=== PATIENT | male | born 1990 | race Caucasian/White ===

== ENCOUNTER 2021-04-29 15:19 | Emergency (ER) | payer BC, OTHER ==
[2021-04-29 16:27] LABS: Absolute Lymphocytes (CBC) 0.7 K/uL (0.7-4.9); Basophils % 0.4 % (0-1.3); Hematocrit 51.3 % (39.6-49.0); Lymphocytes % 12.1 % (15.3-44.8); MPV 9.2 fL (7.6-11.3); RBC Red Blood Cell Count 5.92 M/uL (4.33-5.43)
[2021-04-29 16:28] LABS: ALT/SGPT 27 U/L (12-78); AST/SGOT 17 U/L (15-37); Alkaline Phosphatase 90 U/L (45-117); BUN Blood Urea Nitrogen 21 mg/dL (7-18); Bicarbonate 25 mmol/L (21-32); Bilirubin Direct 0.1 mg/dL (0-0.2); Bilirubin Total 0.7 mg/dL (0.2-1.0); Glucose Level 130 mg/dL (74-106); Lipase 37 U/L (73-393); Potassium 3.6 mmol/L (3.5-5.1); Protein, Total 8.4 g/dL (6.4-8.2); Sodium Level 139 mmol/L (136-145)
[2021-04-29] MEDS ORDERED: ONDANSETRON 4 MG/2 ML VIAL ONE (17:05)
[2021-04-29] MEDS ORDERED: FENTANYL CITR 100 MCG/2 ML ONE ×2 (17:05→19:36)
--- NOTE | 2021-04-29 18:24 | RAD REPORT ---
EXAM DESCRIPTION: CT - Abdomen Pelvis W Contrast - 04/29/2021 6:01 pm CLINICAL HISTORY: Abdominal pain COMPARISON: 2012 TECHNIQUE: Computed axial tomography of the abdomen pelvis was obtained. 100 cc Isovue-300 was admin istered intravenously. Oral contrast was not requested which limits evaluation of bowel. All CT scans are performed using dose optimization technique as appropriate and may include automated exposure control or mA/KV adjustment according to patient size. FINDINGS: The wall of a portion of ileum within the right pelvis is moderately thickened. Suture lies proximal to this. Small bowel is mildly dilated proximal and distal to this portion. Short segment narrowing involves the proximal rectum. Almost the entire colon and small bowel is flui d-filled. Mild dilatation of small bowel. The liver, pancreas, adrenals kidneys appear unremarkable Spleen measures 19 centimeters. IMPRESSION: Moderate thickening of the wall of the ileum likely inflammation. Short segment narrowing of the proximal rectum probably spasm. A mass has a similar appearance but is less likely to and can be monitored on subsequent examination. Mildly dilated fluid-filled small bowel. These findings probably indicate an enteritis or ileus. An o bstruction is considered less likely. If the patient's symptoms do not improve then follow up imaging would recommended for re-evaluation.
[2021-04-29] MEDS ORDERED: DICYCLOMINE HCL 20 MG/2 ML AMP IM ONE (19:34)
--- NOTE | 2021-04-29 19:34 | EDPHYS ---
Physician Documentation [facility] Name: Yadiel Welch Age: 30 yrs Sex: Male : 1990 Arrival Date: 04/29/2021 Time: 15:22 Bed 12 Private MD: ED Physician Nathan Tadeo HPI: 04/29 18:58 This 30 yrs old Male presents to ER via Ambulatory with complaints of Abdominal Pain, jr8 Nausea. 18:58 Is a 30-year-old male patient that presented to the emergency room with 24 hours of jr8 nausea and vomiting with abdominal pain. Patient has a history of Crohn's disease with resection and anastomosis in the past. Has been in remission from Crohn's for the past 7 years. Patient stated for the last 24 hours had had marked decrease and bowel movement. Denies any diarrhea or mucoid or bloody stools.. Historical: - Allergies: 15:58 No Known Allergies; aa5 - PMHx: 15:58 Chron's; aa5 - PSHx: 15:58 Ileum resections; Appendectomy; aa5 - Immunization history:: Client reports receiving the 2nd dose of the Covid vaccine. - Social history:: Smoking status: Patient reports the use of cigarette tobacco products, smokes one pack cigarettes per day. ROS: 18:58 Eyes: Negative for injury, pain, redness, and discharge, ENT: Negative for injury, jr8 pain, and discharge, Neck: Negative for injury, pain, and swelling, Cardiovascular: Negative for chest pain, palpitations, and edema, Respiratory: Negative for shortness of breath, cough, wheezing, and pleuritic chest pain, Back: Negative for injury and pain, MS/Extremity: Negative for injury and deformity, Skin: Negative for injury, rash, and discoloration, Neuro: Negative for headache, weakness, numbness, tingling, and seizure. 18:58 Abdomen/GI: Positive for abdominal pain, nausea and vomiting, abdominal distension, Negative for diarrhea, hematemesis, black/tarry stool, rectal pain, rectal bleeding, bowel incontinence, flatulence. Exam: 18:58 Constitutional: This is a well developed, well nourished patient who is awake, alert, jr8 and in no acute distress. Cardiovascular: Regular rate and rhythm with a normal S1 and S2. No gallops, murmurs, or rubs. Normal PMI, no JVD. No pulse deficits. Respiratory: Lungs have equal breath sounds bilaterally, clear to auscultation and percussion. No rales, rhonchi or wheezes noted. No increased work of breathing, no retractions or nasal flaring. Back: No spinal tenderness. No costovertebral tenderness. Full range of motion. Skin: Warm, dry with normal turgor. Normal color with no rashes, no lesions, and no evidence of cellulitis. MS/ Extremity: Pulses equal, no cyanosis. Neurovascular intact. Full, normal range of motion. Neuro: Awake and alert, GCS 15, oriented to person, place, time, and situation. Cranial nerves II-XII grossly intact. Motor strength 5/5 in all extremities. Sensory grossly intact. 18:58 Abdomen/GI: Inspection: distension, that is mild, Bowel sounds: active, all quadrants, Palpation: soft, in all quadrants, mild abdominal tenderness, in the abdomen diffusely, mass, is not appreciated, rebound tenderness, is not appreciated, voluntary guarding, is not appreciated, involuntary guarding, is not appreciated, no appreciated organomegaly, Indicators: McBurney's point is not tender, Montgomery's sign is negative, Rovsing's sign is negative, Liver: tenderness, is not appreciated. Vital Signs: 15:57 BP 124 / 80; Pulse 116; Resp 18 S; Temp 98.2(O); Pulse Ox 97% on R/A; Weight 68.04 kg aa5 (R); Height 5 ft. 9 in. (175.26 cm) (R); 17:12 BP 129 / 90; Pulse 105; Resp 18; Pulse Ox 98% on R/A; ld1 18:16 BP 126 / 88; Pulse 102; Resp 18; Pulse Ox 99% on R/A; ld1 15:57 Body Mass Index 22.15 (68.04 kg, 175.26 cm) aa5 MDM: 16:41 Patient medically screened. jr8 18:58 Data reviewed: vital signs, nurses notes, lab test result(s), radiologic studies, CT jr8 scan. Data interpreted: Pulse oximetry: on room air is 99 %. Interpretation: normal. Counseling: I had a detailed discussion with the patient and/or guardian regarding: the historical points, exam findings, and any diagnostic results supporting the discharge/admit diagnosis, lab results, radiology results. ED course: Discussed with patient that his labs are unremarkable but he does have fluid-filled bowel loops consistent with enteritis on his CT. Less likely to be obstruction at this time but cannot fully rule that out. When I reexamined patient patient overall is feeling much better. Has had no nausea or vomiting episodes since has been medicated. Is able to tolerate p.o. fluids at this time. Hemodynamically stable and afebrile. My initial recommendation was to observe closely given his history and what we saw on the CT. I had called his primary care for admission but wants him transferred which patient does not want to have happened at this time. I gave him the option to go home or to be admitted under someone else if he wants to wave his rights to his primary care physician. Patient wants to try going home at this time and would closely follow-up and/or come back immediately if something were to worsen.. 04/29 15:59 Order name: Basic Metabolic Panel; Complete Time: 16:41 aa5 04/29 15:59 Order name: CBC with Diff; Complete Time: 16:41 aa5 04/29 15:59 Order name: Hepatic Function; Complete Time: 16:41 aa5 04/29 15:59 Order name: Lipase; Complete Time: 16:41 aa5 04/29 17:04 Order name: CT Abd/Pelvis - IV Contrast Only; Complete Time: 18:46 jr8 04/29 15:59 Order name: IV Saline Lock; Complete Time: 16:55 aa5 04/29 15:59 Order name: Labs collected and sent; Complete Time: 16:55 aa5 Administered Medications: 17:11 Drug: fentaNYL (PF) 50 mcg Route: IVP; Site: right antecubital; ld1 17:11 Follow up: Response: No adverse reaction ld1 17:11 Follow up: Response: No adverse reaction ld1 17:11 Drug: Zofran (Ondansetron) 4 mg Route: IVP; Site: right antecubital; ld1 17:11 Follow up: Response: No adverse reaction ld1 19:44 Drug: Promethazine 25 mg Route: IVP; Site: right antecubital; jh5 19:44 Drug: fentaNYL (PF) 50 mcg Route: IVP; Site: right antecubital; jh5 19:44 Drug: Bentyl (dicyclomine) 20 mg Route: IM; Site: Ventrogluteal RIGHT; [facility] Disposition: 04/30 12:38 Co-signature as Attending Physician, Nathan Tadeo MD I agree with the assessment and kdr plan of care. Disposition Summary: 04/29/21 19:33 Discharge Ordered Location: Home jr8 Problem: new jr8 Symptoms: have improved jr8 Condition: Stable jr8 Diagnosis - Other viral enteritis jr8 - Crohn's disease, unspecified, without complications jr8 Followup: jr8 - With: Sherri Suazo MD - When: 2 - 3 days - Reason: Recheck today's complaints, Continuance of care, Re-evaluation by your physician Discharge Instructions: - Discharge Summary Sheet jr8 - Crohn's Disease jr8 - Viral Gastroenteritis, Adult jr8 Forms: - Medication Reconciliation Form jr8 - Thank You Letter jr8 - Antibiotic Education jr8 - Prescription Opioid Use jr8 - Work release form bb Prescriptions: - Flagyl 500 mg Oral Tablet - take 1 tablet by ORAL route every 12 hours for 7 days; 14 tablet; Refills: 0, jr8 Product Selection Permitted - Cipro 500 mg Oral Tablet - take 1 tablet by ORAL route every 12 hours for 7 days; 14 tablet; Refills: 0, jr8 Product Selection Permitted - promethazine 25 mg Oral Tablet - take 1 tablet by ORAL route every 6 hours As needed; 20 tablet; Refills: 0, jr8 Product Selection Permitted - dicyclomine 20 mg Oral Tablet - take 1 tablet by ORAL route 3 times per day As needed; 21 tablet; Refills: 0, jr8 Product Selection Permitted Signatures: Dispatcher [employer] Nathan Conley MD MD kdr Calderon, Audri RN RN aa5 Beltran Justice PA PA jr8 Deanna Ramirez, RN RN ld1 Danuta Maldonado RN RN jh5
--- NOTE | 2021-04-29 19:34 | ER ---
Nurse's Notes [facility] Name: Yadiel Welch Age: 30 yrs Sex: Male : 1990 Arrival Date: 04/29/2021 Time: 15: Bed 12 Private MD: Diagnosis: Other viral enteritis;Crohn's disease, unspecified, without complications Presentation: 04/29 15:57 Chief complaint: Patient states: abd pain with nausea/vomiting that began yesterday. aa5 Denies diarrhea. Coronavirus screen: vomiting. Ebola Screen: No symptoms or risks identified at this time. Initial Sepsis Screen: Does the patient meet any 2 criteria? HR > 90 bpm. Does the patient have a suspected source of infection? No. Patient's initial sepsis screen is negative. Risk Assessment: Do you want to hurt yourself or someone else? Patient reports no desire to harm self or others. Onset of symptoms was April 2021. 15:57 Acuity: RAGINI 3 aa5 15:57 Method Of Arrival: Ambulatory aa5 Historical: - Allergies: 15:58 No Known Allergies; aa5 - PMHx: 15:58 Chron's; aa5 - PSHx: 15:58 Ileum resections; Appendectomy; aa5 - Immunization history:: Client reports receiving the 2nd dose of the Covid vaccine. - Social history:: Smoking status: Patient reports the use of cigarette tobacco products, smokes one pack cigarettes per day. Screenin:59 Abuse screen: Denies threats or abuse. Denies injuries from another. Nutritional ld1 screening: No deficits noted. Tuberculosis screening: No symptoms or risk factors identified. Fall Risk None identified. Assessment: 16:59 General: Appears in no apparent distress. comfortable, Behavior is calm, cooperative, ld1 appropriate for age. Pain: Complains of pain in abdomen Pain does not radiate. Pain currently is 8 out of 10 on a pain scale. Quality of pain is described as throbbing, Pain began suddenly, Is continuous. Neuro: Level of Consciousness is awake, alert, obeys commands, Oriented to person, place, time, situation. Cardiovascular: Capillary refill < 3 seconds Patient's skin is warm and dry. Respiratory: Airway is patent Respiratory effort is even, unlabored, Respiratory pattern is regular, symmetrical. GI: Abdomen is round non-distended, Bowel sounds present X 4 quads. Abd is soft Abdomen is tender to palpation X 4 quads. : No signs and/or symptoms were reported regarding the genitourinary system. EENT: No signs and/or symptoms were reported regarding the EENT system. Derm: No signs and/or symptoms reported regarding the dermatologic system. Musculoskeletal: No signs and/or symptoms reported regarding the musculoskeletal system. 18:16 Reassessment: Patient appears in no apparent distress at this time. Patient and/or ld1 family updated on plan of care and expected duration. Pain level reassessed. Patient is alert, oriented x 3, equal unlabored respirations, skin warm/dry/pink. Vital Signs: 15:57 BP 124 / 80; Pulse 116; Resp 18 S; Temp 98.2(O); Pulse Ox 97% on R/A; Weight 68.04 kg aa5 (R); Height 5 ft. 9 in. (175.26 cm) (R); 17:12 BP 129 / 90; Pulse 105; Resp 18; Pulse Ox 98% on R/A; ld1 18:16 BP 126 / 88; Pulse 102; Resp 18; Pulse Ox 99% on R/A; ld1 15:57 Body Mass Index 22.15 (68.04 kg, 175.26 cm) aa5 ED Course: 15:22 Patient arrived in ED. as 15:57 Arm band placed on. aa5 15:58 Triage completed. aa5 16:04 Initial lab(s) drawn, by fl, sent to lab. Inserted saline lock: 18 gauge in right aa5 antecubital area, using aseptic technique. Blood collected. 16:41 Beltran Justice [facility]. jr8 16:41 Nathan Tadeo MD is Attending Physician. jr8 16:58 Deanna Ramirez, XENIA is Primary Nurse. ld1 16:59 Patient has correct armband on for positive identification. Bed in low position. Call ld1 light in reach. Side rails up X2. sheep sticker on. Pulse ox on. NIBP on. Door closed. Noise minimized. Warm blanket given. 16:59 No provider procedures requiring assistance completed. ld1 18:01 CT Abd/Pelvis - IV Contrast Only In Process Unspecified. EDMS 19:33 Sherri Suazo MD is Referral Physician. jr8 Administered Medications: 17:11 Drug: fentaNYL (PF) 50 mcg Route: IVP; Site: right antecubital; ld1 17:11 Follow up: Response: No adverse reaction ld1 17:11 Follow up: Response: No adverse reaction ld1 17:11 Drug: Zofran (Ondansetron) 4 mg Route: IVP; Site: right antecubital; ld1 17:11 Follow up: Response: No adverse reaction ld1 19:44 Drug: Promethazine 25 mg Route: IVP; Site: right antecubital; jh5 19:44 Drug: fentaNYL (PF) 50 mcg Route: IVP; Site: right antecubital; jh5 19:44 Drug: Bentyl (dicyclomine) 20 mg Route: IM; Site: Ventrogluteal RIGHT; 5 Outcome: 19:33 Discharge ordered by MD. [email or web address] 19:54 Patient left the ED. jh5 Signatures: Dispatcher [employer] EDMS Dimple Uribe Audri, RN RN aa5 Beltran Justice PA PA jr8 Deanna Ramirez RN RN ld1 Danuta Maldonado RN RN jh5
[2021-04-29] MEDS ORDERED: PROMETHAZINE 25 MG TABLET ONE (19:36)
[2021-04-29 20:02] VITALS: TEMP 98.2
[2021-04-29 20:05] VITALS: BP 126/88; O2SAT 99
== END 2021-04-29 19:54 | disposition home or self-care (01) ==
LOC: ER 15:19
DX: A08.39 Other viral enteritis (principal); K50.90 Crohn's disease, unspecified, without complications; F17.210 Nicotine dependence, cigarettes, uncomplicated
CPT/HCPCS: 85025; 80048; 36415; 80076; 83690; 74177; 96375; 96372; 96374; 99284; Q9967; J0500; J3010 ×2; J2405; Q0169

== ENCOUNTER 2023-01-28 18:36 | Inpatient (IN) | payer BC ==
--- NOTE | 2023-01-28 20:02 | RAD REPORT ---
EXAM DESCRIPTION: US - Scrotum Testicles - 01/28/2023 7:24 pm CLINICAL HISTORY: PAIN COMPARISON: PELVIS dated 07/29/2007 FINDINGS: The right testicle 4.5 x 3.8 x 2.5 cm. No intratesticular masses or evidence of testicular torsion. The left testicle 4.4 x 3.1 x 2.3 cm. No intratesticular masses or evidence of testicular torsion. Both epididymides are normal in size and appearance. No pathologic fluid collections. Moderate scrotal wall edema and thickening. IMPRESSION: No testicular mass or evidence of testicular torsion. Moderate scrotal wall thickening and edema.
[2023-01-28] MEDS ORDERED: METHYLPREDNISOLONE 40 MG INJ ONE (20:37)
[2023-01-28] MEDS ORDERED: Ciprofloxacin 200mg IV 200 MG/100 ML IV.SOLN. IV ONE (20:38)
[2023-01-28] MEDS ORDERED: FAMOTIDINE 20 MG/2 ML VIAL IV ONE (20:38)
[2023-01-28 21:25] LABS: Absolute Lymphocytes (CBC) 1.8 K/uL (0.7-4.9); Hematocrit 41.6 % (39.6-49.0); Lymphocytes % 14.9 % (15.3-44.8); MCV 87.5 fL (80-100); MPV 8.5 fL (7.6-11.3); Platelets 190 thou/uL (152-406); RBC Red Blood Cell Count 4.75 M/uL (4.33-5.43)
[2023-01-28 21:28] LABS: Specific Gravity 1.027 (1.005-1.030); Urine Bacteria None Seen /HPF (<20); Urine Bilirubin NEGATIVE (Negative); Urine Blood Negative (Negative); Urine Clarity Clear (Clear); Urine Color Light-Yellow (Yellow); Urine Glucose NEGATIVE (Negative); Urine Mucus Slight /HPF (None Seen); Urine Protein TRACE (Negative); Urine RBC <5 /HPF (None Seen); Urine Urobilinogen Normal (Normal); Urine pH 5.5 (5.0-7.0)
[2023-01-28 21:39] LABS: Potassium 3.7 mEq/L (3.5-5.1)
--- NOTE | 2023-01-28 22:15 | RAD REPORT ---
EXAM DESCRIPTION: CTAbdomen Pelvis W Contrast - 01/28/2023 10:03 pm CLINICAL HISTORY: Abdominal pain. ABD PAIN COMPARISON: Abdomen Pelvis W Contrast dated 04/29/2021; CT ABD PELVIS W CONTRAST dated 01/28/2013; CT ABD PELVIS W CONTRAST dated 01/02/2008 TECHNIQUE: Biphasic CT imaging of the abdomen and pelvis was performed with 100 ml non-ionic IV cont rast. All CT scans are performed using dose optimization technique as appropriate and may include automated exposure control or mA/KV adjustment according to patient size. FINDINGS: The lung bases are clear. The liver, spleen, pancreas, adrenal glands and kidneys are within normal limits. No bowel obstruction, free air, free fluid or abscess. Moderate stool is present throughout the colon . Postsurgical changes are present in the right lower quadrant. Mild thickening is seen involving 6-7 cm segment of the ileum in the right lower quadrant. No evidence of significant lymphadenopathy. No suspicious bony findings. Mild scrotal fluid and wall thickening. IMPRESSION: Mild scrotal fluid and wall thickening is present. Wall thickening of segment of the ileum is present in the inferior right pelvis likely representing i nflammation.
--- NOTE | 2023-01-28 22:33 | EDPHYS ---
Physician Documentation [facility] Name: Yadiel Welch Age: 32 yrs Sex: Male : 1990 Arrival Date: 01/28/2023 Time: 18:36 Bed 20 Private MD: ED Physician Chadd Zhang HPI: 01/28 22:53 This 32 yrs old Male presents to ER via Ambulatory with complaints of Testicular kb Problem. 22:53 The patient presents with scrotal pain, of both sides, with swelling, with erythema. kb Onset: The symptoms/episode began/occurred this morning. Modifying factors: The symptoms are alleviated by nothing, the symptoms are aggravated by pressure. Associated signs and symptoms: The patient has no apparent associated signs or symptoms. Severity of symptoms: At their worst the symptoms were moderate, in the emergency department the symptoms are unchanged. The patient has not experienced similar symptoms in the past. The patient has not recently seen a physician. Historical: - Allergies: 18:54 No Known Allergies; nj1 - PMHx: 18:54 chron's; nj1 - PSHx: 18:54 Appendectomy; Ileum resections; nj1 - Immunization history:: Client reports receiving the 2nd dose of the Covid vaccine. - Social history:: Smoking status: Patient reports the use of cigarette tobacco products, smokes one-half pack cigarettes per day. ROS: 22:52 Constitutional: Negative for fever, chills, and weight loss. kb 22:52 : Positive for testicular pain of the scrotum. 22:52 All other systems are negative. Exam: 22:52 Constitutional: This is a well developed, well nourished patient who is awake, alert, kb and in no acute distress. Head/Face: Normocephalic, atraumatic. ENT: Moist Mucous membranes Cardiovascular: Regular rate and rhythm with a normal S1 and S2. No gallops, murmurs, or rubs. No pulse deficits. Respiratory: Respirations even and unlabored. No increased work of breathing. Talking in full sentences Abdomen/GI: Soft, non-tender. No distention MS/ Extremity: Pulses equal, no cyanosis. Neurovascular intact. Full, normal range of motion. Neuro: Awake and alert, GCS 15, oriented to person, place, time, and situation. Moves all extremities. Normal gait. 22:52 : Male external genitalia: erythema, of the scrotum is seen, that is moderate, swelling: of the scrotum is noted, scrotal, that is moderate. 22:52 Skin: cellulitis, that is moderate, on the scrotum. Vital Signs: 18:52 BP 126 / 87; Pulse 97; Resp 18; Temp 99.1(TE); Pulse Ox 99% ; Weight 73.48 kg; Height 5 nj1 ft. 9 in. ; Pain 5/10; 19:44 BP 120 / 83; Pulse 86; Resp 18; Pulse Ox 97% ; cm10 18:52 Body Mass Index 23.92 (73.48 kg, 175.26 cm) nj1 18:52 Pain Scale: Adult nj1 MDM: 18:40 Patient medically screened. kb 22:37 Differential diagnosis: nonspecific abdominal pain, cellulitis, testicular torsion. kb Data reviewed: vital signs, nurses notes. Consideration of Admission/Observation Patient was admitted/placed on observation. Escalation of care including admission/observation considered. Management of patient was discussed with the following: Hospitalist: JANAE Wells accepts pt for admission. Counseling: I had a detailed discussion with the patient and/or guardian regarding the historical points, exam findings, and any diagnostic results supporting the discharge/admit diagnosis, lab results, radiology results, the need for further work-up and treatment in the hospital. 01/28 20:07 Order name: CBC with Diff; Complete Time: 21:31 kb 01/28 20:07 Order name: Basic Metabolic Panel; Complete Time: 21:42 kb 01/28 20:07 Order name: Urinalysis w/ reflexes; Complete Time: 21:31 kb 01/28 20:07 Order name: Lactate w/ 2H reflex if indic.; Complete Time: 21:42 kb 01/28 20:07 Order name: Blood Culture Adult (2) kb 01/28 23:32 Order name: Basic Metabolic Panel EDMS 01/28 23:32 Order name: Basic Metabolic Panel; Complete Time: 12:58 EDMS 01/28 23:32 Order name: Basic Metabolic Panel EDMS 01/28 23:32 Order name: Basic Metabolic Panel EDMS 01/28 23:32 Order name: CBC with Automated Diff EDMS 01/28 23:32 Order name: CBC with Automated Diff; Complete Time: 12:58 EDMS 01/28 23:32 Order name: CBC with Automated Diff EDMS 01/28 23:32 Order name: CBC with Automated Diff EDMS 01/28 23:32 Order name: Magnesium EDMS 01/28 23:32 Order name: Magnesium; Complete Time: 12:58 EDMS 01/28 23:32 Order name: Magnesium EDMS 01/28 23:32 Order name: Magnesium EDMS 01/28 18:54 Order name: US Scrotum Testicles; Complete Time: 20:04 kb 01/28 20:07 Order name: CT Abd/Pelvis - IV Contrast Only; Complete Time: 22:16 kb 01/28 23:26 Order name: CONS Physician Consult EDMS 01/28 23:32 Order name: Regular EDMS 01/28 20:07 Order name: IV Start; Complete Time: 21:02 kb Administered Medications: 23:12 Drug: Cefepime IVPB 2 grams Route: IVPB; Rate: 200 ml/hr; Infused Over: 30 mins; Site: cm10 right antecubital; 23:12 Drug: NS 0.9% IV 1000 ml Route: IV; Rate: 1000 ml; Site: right antecubital; cm10 01/29 00:09 Drug: vancoMYCIN IVPB 1 grams Route: IVPB; Infused Over: 2 hrs; Site: right hand; ha1 02:00 Follow up: Response: No adverse reaction; IV Status: Completed infusion; IV Intake: ha1 250ml Disposition: 01/28 22:31 Co-signature as Attending Physician, Chadd Zhang MD I agree with the assessment and rn plan of care. I reviewed the patient's care provided by Advanced Practice Provider \T\ agree w/ the diagnosis \T\ care plan. I personally saw the pt \T\ performed a substantive portion of the visit, incldng all aspects of the (History/Exam/Medical Decision Making). PA/RIDES ATTENDANT's history reviewed, patient interviewed, and examined. HPI: 32 year old with swelling and pain to scrotum, no trauma, on humira. My personal exam of patient reveals: + swelling and edema to scrotal wall, no tenderness/erythema of perineum or perianal tissue. No fluctuance or abscess. 01/30 09:57 Co-signature as Attending Physician, Chadd Zhang MD. rn Disposition Summary: 01/28/23 22:32 Hospitalization Ordered Hospitalization Status: Inpatient Admission kb Provider: Kendell Kat Condition: Stable kb Problem: new kb Symptoms: are unchanged kb Bed/Room Type: Standard kb Location: Telemetry/MedSurg (observation)(01/29/23 14:03) bc6 Room Assignment: 205(01/29/23 14:03) 6 Diagnosis - Cellulitis of groin - scrotum kb Forms: - Medication Reconciliation Form kb - SBAR form kb - Leadership Thank You Letter kb Signatures: Dispatcher [employer] EDMS Hansa Pabon, AVIONICS ELECTRICAL ENGINEER-C AVIONICS ELECTRICAL ENGINEER-Ckb Gopi Frausto MD MD cha Nieto, Roman, MD MD rn Basinger, Emily RN RN eb1 Esther Nj RN RN 1 Uzam Kelly 6 Christiana Durán RN RN nj1 Sunita Uribe RN RN cm10 Corrections: (The following items were deleted from the chart) 01/28 23:14 22:32 Telemetry/MedSurg (Inpatient) kb eb1 23:14 22:32 kb eb1 01/29 14:03 01/28 23:14 [facility] ER HOLD eb1 bc6 01/29 14:03 01/28 23:14 ERHOLD- eb1 6
--- NOTE | 2023-01-28 22:33 | ER ---
Nurse's Notes [facility] Name: Yadiel Welch Age: 32 yrs Sex: Male : 1990 Arrival Date: 01/28/2023 Time: 18:36 Bed 20 Private MD: Diagnosis: Cellulitis of groin-scrotum Presentation: 01/28 18:52 Chief complaint: Patient states: Testicular pain along with swelling/redness since [facility] about 1 hr ago. Denies dysuria. Coronavirus screen: Vaccine status: Patient reports receiving the 2nd dose of the covid vaccine. Ebola Screen: Patient denies travel to an Ebola-affected area in the 21 days before illness onset. Initial Sepsis Screen: Does the patient meet any 2 criteria? No. Patient's initial sepsis screen is negative. Does the patient have a suspected source of infection? No. Patient's initial sepsis screen is negative. Risk Assessment: Do you want to hurt yourself or someone else? Patient reports no desire to harm self or others. Onset of symptoms was January 28, 2023 at 18:00. 18:52 Method Of Arrival: Ambulatory [facility] 18:52 Acuity: RAGINI 2 [facility] Triage Assessment: 19:44 General: Appears in no apparent distress. comfortable, Behavior is calm, cooperative. cm10 Pain: Complains of pain in groin. Neuro: No deficits noted. Level of Consciousness is awake, alert, obeys commands, Oriented to person, place, time, situation. Respiratory: No deficits noted. Airway is patent Respiratory effort is even, unlabored, Respiratory pattern is regular, symmetrical. : Reports Scrotal pain: sudden onset. Historical: - Allergies: 18:54 No Known Allergies; nj1 - PMHx: 18:54 chron's; nj1 - PSHx: 18:54 Appendectomy; Ileum resections; nj1 - Immunization history:: Client reports receiving the 2nd dose of the Covid vaccine. - Social history:: Smoking status: Patient reports the use of cigarette tobacco products, smokes one-half pack cigarettes per day. Screenin:45 [facility] ED Fall Risk Assessment (Adult) History of falling in the last 3 months, cm10 including since admission No falls in past 3 months (0 pts) Confusion or Disorientation No (0 pts) Intoxicated or Sedated No (0 pts) Impaired Gait No (0 pts) Mobility Assist Device Used No (0 pt) Altered Elimination No (0 pt) Score/Fall Risk Level 0 - 2 = Low Risk Oriented to surroundings, Maintained a safe environment, Hourly rounding (assess needs \T\ fall precautionary measures) done. Abuse screen: Denies threats or abuse. Denies injuries from another. Nutritional screening: No deficits noted. Tuberculosis screening: No symptoms or risk factors identified. Assessment: 20:30 Reassessment: Patient appears in no apparent distress at this time. Patient and/or cm10 family updated on plan of care and expected duration. Pain level reassessed. Patient is alert, oriented x 3, equal unlabored respirations, skin warm/dry/pink. 21:30 Reassessment: Patient appears in no apparent distress at this time. Patient and/or cm10 family updated on plan of care and expected duration. Pain level reassessed. Patient is alert, oriented x 3, equal unlabored respirations, skin warm/dry/pink. 22:30 Reassessment: Patient appears in no apparent distress at this time. Patient and/or cm10 family updated on plan of care and expected duration. Pain level reassessed. Patient is alert, oriented x 3, equal unlabored respirations, skin warm/dry/pink. 23:25 Reassessment: Patient appears in no apparent distress at this time. Patient and/or cm10 family updated on plan of care and expected duration. Pain level reassessed. Patient is alert, oriented x 3, equal unlabored respirations, skin warm/dry/pink. 01/29 07:00 Reassessment: SEE [employer] DOCUMENTATION. REPORT RECEIVED FROM XENIA RIVERA. db Vital Signs: 01/28 18:52 BP 126 / 87; Pulse 97; Resp 18; Temp 99.1(TE); Pulse Ox 99% ; Weight 73.48 kg; Height 5 nj1 ft. 9 in. ; Pain 5/10; 19:44 BP 120 / 83; Pulse 86; Resp 18; Pulse Ox 97% ; cm10 18:52 Body Mass Index 23.92 (73.48 kg, 175.26 cm) [facility] 18:52 Pain Scale: Adult [facility] ED Course: 18:39 Patient arrived in ED. im 18:40 Hansa Pabon FNP-C is PHCP. kb 18:40 Gopi Frausto MD is Attending Physician. kb 18:54 Triage completed. nj1 18:54 Arm band placed on left wrist. nj1 19:26 US Scrotum Testicles In Process Unspecified. EDMS 19:44 Sunita Uribe, XENIA is Primary Nurse. cm10 19:45 Patient has correct armband on for positive identification. Placed in gown. Bed in low cm10 position. Call light in reach. Provided Education on: N/A. 19:45 No provider procedures requiring assistance completed. cm10 21:54 Inserted saline lock: 20 gauge in right antecubital area, using aseptic technique. as6 22:05 CT Abd/Pelvis - IV Contrast Only In Process Unspecified. EDMS 22:20 Attending Physician role handed off by Gopi Frausto MD rn 22:20 Chadd Zhang MD is Attending Physician. rn 22:32 Kendell Kat MD is Hospitalizing Provider. kb 01/29 00:10 Report received from XENIA Dorsey. ha1 00:45 Patient admitted, IV remains in place. ha1 Administered Medications: 01/28 23:12 Drug: Cefepime IVPB 2 grams Route: IVPB; Rate: 200 ml/hr; Infused Over: 30 mins; Site: cm10 right antecubital; 23:12 Drug: NS 0.9% IV 1000 ml Route: IV; Rate: 1000 ml; Site: right antecubital; cm10 01/29 00:09 Drug: vancoMYCIN IVPB 1 grams Route: IVPB; Infused Over: 2 hrs; Site: right hand; ha1 02:00 Follow up: Response: No adverse reaction; IV Status: Completed infusion; IV Intake: ha1 250ml Medication: 01/28 19:45 VIS not applicable for this client. cm10 Intake: 01/29 02:00 IV: 250ml; Total: 250ml. ha1 Outcome: 01/28 22:32 Decision to Hospitalize by Provider. kb 01/29 00:45 Condition: stable ha1 00:45 Admitted to ER Hold. Please see [facility] for further documentation. ha1 00:45 Discharge instructions given to patient, family, Instructed on the need for admit, Demonstrated understanding of instructions, follow-up care. 14:18 Admitted to Med/surg accompanied by tech, via wheelchair, room 205, Report called to wilian Abrams RN 14:50 Patient left the ED. me1 Signatures: Dispatcher [employer] Hansa Chapin, [employer] Chadd Zhang MD MD rn Slawson, Ashby, RN RN as6 Esther Nj, RN RN ha1 Deya Mckee, RN RN db Christiana Durán RN RN nj1 Clarita Whipple Clarissa, RN RN cm10 Gina Barrera, RN RN me1
[2023-01-28] MEDS ORDERED: NA CHLORIDE 0.9% 1,000 ML ONE (22:51)
[2023-01-28] MEDS ORDERED: VANCOMYCIN 1 GM/VIAL ONE (22:51)
[2023-01-28] MEDS ORDERED: NA CHLORIDE 0.9% 100 ML ONE (22:51)
[2023-01-28] MEDS ORDERED: NA CHLORIDE 0.9% 250 ML ONE (22:51)
[2023-01-28] MEDS ORDERED: CEFEPIME 2 GM VIAL ONE (22:51)
--- NOTE | 2023-01-28 23:22 | P.HP ---
Certification for Inpatient Patient admitted to: Inpatient With expected LOS: <2 Midnights Patient will require the following post-hospital care: None Practitioner: I am a practitioner with admitting privileges, knowledge of patient current condition, hospital course, and medical plan of care. Services: Services provided to patient in accordance with Admission requirements found in Title 42 Section 412.3 of the Code of Federal Regulations Patient History Date of Service: 01/29/23 Reason for admission: Scrotal Cellulitis History of Present Illness: 32-year-old male with a past medical history of Crohn's disease, tobacco use presents to the emergency room with scrotal edema that started today. He reports erythema, swelling, he reports pain tenderness with range of motion of lower extremities. He denies fever, nausea vomiting, urinary frequency, penile discharge. He reports this is never happened before. Plan to admit for scrotal cellulitis. Laboratory evaluation leukocytosis CBC 12.0, left shift 77.7 UA negative, hypocalcemia 8.[address] IMPRESSION: Mild scrotal fluid and wall thickening is present.Wall thickening of segment of the ileum is present in the inferior right pelvis likely representing inflammation. Scrotal ultrasound IMPRESSION: No testicular mass or evidence of testicular torsion. Allergies No Known Allergies Allergy (Verified 01/29/13 01:30) Home Medications: Hydrocodone 10/APAP 325 [[place] 10/325*] 1 tab PO Q6HP PRN #40 tab 01/31/13 Pantoprazole Sodium [Protonix] 40 mg PO DAILY #30 tablet. 01/31/13 Prednisone [Sterapred Ds] 10 mg PO DAILY #1 tab.ds.pk 01/31/13 - Past Medical/Surgical History Diabetic: No -: Crohns -: arthritis -: appendectomy -: bowel resection - Social History Smoking Status: Current every day smoker Alcohol use: Yes CD- Drugs: No Caffeine use: Yes Review of Systems 10-point ROS is otherwise unremarkable Physical Examination - Physical Exam General: Alert, In no apparent distress, Oriented x3, Mild distress, Other (pain scrotal) HEENT: Atraumatic, Normocephalic Neck: Supple, 2+ carotid pulse no bruit, JVD not distended Respiratory: Clear to auscultation bilaterally, Normal air movement Cardiovascular: No edema, Normal pulses, Regular rate/rhythm, Normal S1 S2 Capillary refill: <2 Seconds Gastrointestinal: Normal bowel sounds, Soft and benign Musculoskeletal: No clubbing, No swelling Integumentary: No rashes, No breakdown Neurological: Normal speech, Normal strength at 5/5 x4 extr, Normal tone External genitalia: Other (Scrotal edema with mild erythema) - Studies Laboratory Data (last 24 hrs) 01/28/23 01/28/23 20:40 20:40 WBC 12.20 H Hgb 14.2 Hct 41.6 Plt Count 190 Sodium 137 Potassium 3.7 BUN 13 Creatinine 0.67 L Glucose 102 Assessment and Plan - Plan Assessment plan Scrotal cellulitis Scrotal pain Hypocalcemia History of Crohn's disease Assessment plan Scrotal cellulitis Scrotal pain Urology consult IV antibiotics, Cipro, cefepime, as needed analgesics. Urine culture, trend WBCs CBC 12.0, left shift 77.7 UA negative, abdominal pelvis CT IMPRESSION: Mild scrotal fluid and wall thickening is present.Wall thickening of segment of the ileum is present in the inferior right pelvis likely representing inflammation. Scrotal ultrasound IMPRESSION: No testicular mass or evidence of testicular torsion. Hypocalcemia Trend electrolytes replace as needed hypocalcemia 8.2 History of Crohn's disease Diet regular Full code DVT Lovenox Discharge Plan: Home Plan to discharge in: 48 Hours - Advance Directives Does patient have a Living Will: No Does patient have a Durable POA for Healthcare: No - Code Status/Comfort Care Code Status: Full Code Physician Review: Patient Assessed, Agree with Above Assessment and Plan Critical Care: No Time Spent Managing Pts Care (In Minutes): 50
[2023-01-28] MEDS ORDERED: ONDANSETRON 4 MG/2 ML VIAL IV PRN (23:29)
[2023-01-28] MEDS ORDERED: ZOLPIDEM TARTRATE 5 MG TABLET PO PRN (23:29)
[2023-01-28] MEDS ORDERED: ACETAMINOPHEN 500 MG TAB PO PRN (23:29)
[2023-01-29 02:02] VITALS: BMI 26.1
[2023-01-29 03:50] LABS: Absolute Lymphocytes (CBC) 1.9 K/uL (0.7-4.9); Hematocrit 38.8 % (39.6-49.0); Lymphocytes % 18.8 % (15.3-44.8); MCV 87.3 fL (80-100); MPV 8.4 fL (7.6-11.3); Platelets 166 thou/uL (152-406); RBC Red Blood Cell Count 4.45 M/uL (4.33-5.43)
[2023-01-29 03:59] LABS: Potassium 3.6 mEq/L (3.5-5.1)
[2023-01-29 04:45] VITALS: TEMP 98
[2023-01-29] MEDS ORDERED: CEFEPIME 2 GM in NA CHLORIDE 0.9% 100 ML IV SCH (09:00)
[2023-01-29] MEDS ORDERED: CIPROFLOXACIN 400mg IV 400 MG/200 ML BAG IV SCH (09:00)
[2023-01-29] MEDS ORDERED: ENOXAPARIN 40 MG/0.4 ML SQ SCH (09:00)
--- NOTE | 2023-01-29 09:08 | P.CNS ---
Date of Consult: 01/29/23 Reason for Consult: scrotal cellulitis Chief Complaint: Scrotal Cellulitis History of Present Illness: Patient is a 32 yo male with a history of Crohn's disease who presented to the ED with complaints of scrotal swelling, redness and pain. CT abdomen/pelvis r evealing "Mild scrotal fluid and wall thickening." Scrotal ultrasound without evidence of testicular mass or testicular torsion. ID consulted for scrotal cellulitis. Allergies No Known Allergies Allergy (Verified 01/29/13 01:30) Home medications list reviewed: Yes Home Medications: Hydrocodone 10/APAP 325 [[place] 10/325*] 1 tab PO Q6HP PRN #40 tab 01/31/13 Pantoprazole Sodium [Protonix] 40 mg PO DAILY #30 tablet.dr 01/31/13 Prednisone [Sterapred Ds] 10 mg PO DAILY #1 tab.ds.pk 01/31/13 - Past Medical/Surgical History Diabetic: No -: Crohns -: arthritis -: appendectomy -: bowel resection - Social History Smoking Status: Current every day smoker Alcohol use: Yes CD- Drugs: No Caffeine use: Yes Review of Systems 10-point ROS is otherwise unremarkable Integumentary: Other (scrotal pain, edema, erythema) Physical Examination Temp Pulse Resp BP Pulse Ox 98 F 84 16 113/74 98 01/29/23 08:00 01/29/23 08:00 01/29/23 08:00 01/29/23 08:00 01/29/23 08:00 General: Alert, In no apparent distress, Oriented x3 HEENT: Atraumatic, Normocephalic, PERRLA Neck: Supple, JVD not distended Respiratory: Clear to auscultation bilaterally, Normal air movement Cardiovascular: No edema, Normal pulses Gastrointestinal: Normal bowel sounds, Soft and benign Musculoskeletal: No clubbing, No swelling Integumentary: Tenderness/swelling (scrotum) Neurological: Normal speech, Normal tone, Normal affect External genitalia: Edema (scrotal edema, erythema) Laboratory Data (last 24 hrs) 01/28/23 01/28/23 20:40 20:40 WBC 12.20 H Hgb 14.2 Hct 41.6 Plt Count 190 Sodium 137 Potassium 3.7 BUN 13 Creatinine 0.67 L Glucose 102 Imagings Data: - Reviewed Conclusions/Impression: Problem List Scrotal Cellulitis Crohn's Disease Hypocalcemia Scrotal Cellulitis - Scrotal ultrasound 01/28: "No testicular mass or evidence of testicular torsion. Moderate scrotal wall thickening and edema." - CT abdomen/pelvis 01/28: "Mild scrotal fluid and wall thickening is present. Wall thickening of segment of the ileum is present in the inferior right pelvis likely representing inflammation." - Travel/Exposures: Patient reports visiting [facility] last week. - Leukocytosis improved (WBC 12.2 -> 10.2) - Afebrile Recommendations - Start patient on Ciprofloxacin and Doxycycline PO x 10 days - Follow up with PCP in 1-2 weeks - Continue to monitor area for worsening signs/symptoms of infection Case discussed with Marly Guerrero
[2023-01-29] MEDS ORDERED: NA CHLORIDE 0.9% 100 ML ONE (09:53)
[2023-01-29] MEDS ORDERED: ENOXAPARIN 40 MG/0.4 ML SQ ONE (09:53)
[2023-01-29] MEDS ORDERED: CEFEPIME 2 GM VIAL ONE (09:53)
[2023-01-29] MEDS ORDERED: CIPROFLOXACIN 400mg IV 400 MG/200 ML BAG IV ONE (09:54)
[2023-01-29] MEDS ORDERED: POTASSIUM 25 MEQ EFFERV TAB PO ONE (12:00)
[2023-01-29 12:25] VITALS: BP 116/70
[2023-01-29] MEDS ORDERED: POTASSIUM 25 MEQ EFFERV TAB ONE ×2 (12:40→12:48)
[2023-01-29 15:36] VITALS: O2SAT 97
--- NOTE | 2023-01-29 20:00 | P.CNS ---
Date of Consult: 01/29/23 Reason for Consult: Scrotal cellulitis Chief Complaint: Scrotal Cellulitis History of Present Illness: 32-year-old gentleman with Crohn's disease on Humira presented to the emergency room with scrotal swelling, pain and tenderness that began on Thursday. He had associated erythema upon initial presentation to the emergency department. They initiated vancomycin and cefepime, and he noted a marked rapid improvement. He denied any associated bites or lesions and he denied any trauma to his genitalia. No known drug allergies Medications: Protonix, Humira, prednisone 10 mg daily Past surgical history: Appendectomy and history of bowel resection Social history: Everyday smoker Examination: Patient well-appearing and in no acute distress Alert, awake, oriented x3 No dyspnea or sign of respiratory distress, in fact patient stepped out to smoke at the time I arrived to see him in the emergency room Abdomen soft, nontender. Lower midline incision visible well-healed. No suprapubic tenderness. Genitalia: Circumcised without obvious lesion. Orthotopic meatus patent without lesion or discharge. Mild to moderate proximal shaft edema extending and involving the entirety of the bilateral scrotum without significant erythema and no skin lesions evident. No crepitus. No desquamation, weepy skin or discharge. Perineum: Without lesion or tenderness and no crepitus Musculoskeletal normal, ambulatory without limitation 01/28/2023 WBC 12.2, hemoglobin 14.2, platelets 190, creatinine 0.67, UA micro negative 01/28/2023 scrotal ultrasound: Bilateral testes without intratesticular mass or evidence of vascular abnormality or torsion. Normal epididymides bilaterally. No pathologic fluid collections. Moderate scrotal wall edema and thickening. 01/28/2023 CT abdomen and pelvis with contrast: Findings: Lung bases clear. Liver, spleen, pancreas, adrenal glands and kidneys within normal limits. No bowel obstruction, free air, free fluid or abscess. Moderate stool present throughout the colon. Postsurgical changes are present in the right lower quadrant. Mild thickening is seen involving 6 to 7 cm segment of the ileum in the right lower quadrant. No evidence of significant lymphadenopathy. No suspicious bony findings. Mild scrotal fluid and wall thickening. Assessment and recommendation: 32-year-old gentleman with Crohn's disease on Humira and prednisone with scrotal inflammation, suspected cellulitis, rapidly improved following a single IV administration of vancomycin and cefepime. -While the etiology of the scrotal swelling is not known, patient denies any bite or trauma, the potential for colorectal involvement extending into the perineum or scrotum is certainly possible relative to his history of Crohn's disease. As such, he may benefit from the following: -Outpatient cystoscopy to rule out any urethral stricture disease or signs of lesion or fistulous connection potentially in the perineal region or in the bladder given his prior bowel resection and Crohn's disease -Anoscopy to rule out fistula in ano via general surgery Allergies No Known Allergies Allergy (Verified 01/29/13 01:30) Home medications list reviewed: Yes Home Medications: Hydrocodone 10/APAP 325 [[place] 10/325*] 1 tab PO Q6HP PRN #40 tab 01/31/13 Pantoprazole Sodium [Protonix] 40 mg PO DAILY #30 tablet. 01/31/13 Prednisone [Sterapred Ds] 10 mg PO DAILY #1 tab.ds.pk 01/31/13 Ciprofloxacin HCl 500 mg PO BID #20 tab 01/29/23 Doxycycline Hyclate 100 mg PO BID #20 tab 01/29/23 Hydrocodone 10/APAP 325 [[place] 10/325] 1 tab PO Q6H PRN #20 tab 01/29/23 - Past Medical/Surgical History Diabetic: No -: Crohns -: arthritis -: appendectomy -: bowel resection - Social History Smoking Status: Current every day smoker Alcohol use: Yes CD- Drugs: No Caffeine use: Yes Physical Examination Temp Pulse Resp BP Pulse Ox 98 F 78 18 116/70 99 01/29/23 12:00 01/29/23 12:00 01/29/23 12:00 01/29/23 12:00 01/29/23 12:00 Laboratory Data (last 24 hrs) 01/28/23 01/28/23 20:40 20:40 WBC 12.20 H Hgb 14.2 Hct 41.6 Plt Count 190 Sodium 137 Potassium 3.7 BUN 13 Creatinine 0.67 L Glucose 102 - Problems (1) Scrotal edema Status: Acute Critical Care: No Time Spent Managing Pts care (In Minutes): 15
[2023-01-29] MEDS ORDERED: DOXYCYCLINE 100 MG CAP PO SCH (21:00)
== END 2023-01-29 18:36 | disposition home or self-care (01) | DRG 728 ==
LOC: ER 18:36 → ERHOLD 23:23 → 2ND 01-29 14:19
PROVIDERS: ADMIT Hospitalist; ATTEND Hospitalist
DX: N49.2 Inflammatory disorders of scrotum (principal); K50.90 Crohn's disease, unspecified, without complications; E83.51 Hypocalcemia; F17.210 Nicotine dependence, cigarettes, uncomplicated; Z90.49 Acquired absence of other specified parts of digestive tract; Z79.52 Long term (current) use of systemic steroids; Z79.899 Other long term (current) drug therapy
CPT/HCPCS: 36415; 74177; 76870; 80048; 81001; 83605; 83735; 85025; 87040; 96365; 96366; 96375; 99285; J0692; J0744; J1650; J2920; J7030; J7050; Q9967